=== PATIENT | female | born 1935 | race Caucasian/White ===

== ENCOUNTER 2017-11-03 11:23 | Day surgery (SDC) | payer MEDICARE ==
--- NOTE | 2017-11-03 07:13 | History and Physical - [place] ---
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 Over the last number of refills battery depletion was identified. She is here for battery change without solution or parameter changes. PAST MEDICAL HISTORY: Hypertension. PAST SURGICAL HISTORY: Hysterectomy, gallbladder surgery, spinal fusion and knee surgery. MEDICATIONS ON ADMISSION: List to be provided. ALLERGIES: LEVAQUIN, BETA BLOCKERS, ZOLOFT, LASIX, MAXZIDE, AUGMENTIN, AND ZAROXOLYN. FAMILY/PSYCHOSOCIAL HISTORY: Social history - Noncontributory. Family history - Asthma, coronary artery disease, hypertension, and cancer. SYSTEMS REVIEW: The patient seems appropriate in no acute distress. The remainder of the systems review is positive for blood pressure problems, bladder disease, reflux, and degenerative arthritis. PHYSICAL EXAMINATION: From chart height is 5'7", weight is 150. No vital signs. HEENT: Within normal limits. LUNGS: Clear. HEART: Regular rate and rhythm. ABDOMEN: Nontender. MUSCULOSKELETAL: Examination of the musculoskeletal system shows the pump in the right posterior gluteal margin. The incision was intact. The midline incision for the catheter placement was intact. Primary pain pattern low back with a bilateral lower extremity extension. Motor and sensory field evaluation shows generalized weakness and sensory loss to both lower extremities. NEUROLOGIC: Cranial nerves are intact. IMPRESSION: 1. 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 2. IMPLANTED INTERNAL INTRATHECAL INFUSION DEVICE WITH BATTERY DEPLETION. PLAN: The patient is here for a pump battery replacement on an outpatient basis. The side effects, risks, and complications were reviewed and discussed. The procedure will be outpatient. JOB NUMBER: [id number] [facility]
[~2017-11-03 11:23] MED LIST: ACETAMINOPHEN 1,000 MG/100 ML BTL IV ONE; CLINDAMYCIN 600MG/50ML PREMIX 600 MG/50 ML BAG IVPB ONE; FAMOTIDINE 20MG TABLET PO ONE; MECLIZINE 25 MG TABLET PO ONE; METOCLOPRAMIDE 10 MG TABLET PO ONE; MORPHINE SULFATE 0.5 GM in 0.9 % SODIUM CHLORIDE 100ML 20 ML IV ONE; MORPHINE SULFATE/PF 0.05 MG in 0.9 % SODIUM CHLORIDE 10ML VIA 0.95 ML IV ONE
[2017-11-03] MEDS ORDERED: LIDOCAINE 1% W/EPI 1:200,000 MPF 30ML SQ ONE (11:24)
[2017-11-03] MEDS ORDERED: LIDOCAINE 2% MDV (20MG/ML) 20ML VIAL IV ONE (11:24)
[2017-11-03] MEDS ORDERED: CLINDAMYCIN (PEDIATRIC DOSING) 150 MG/ML VIAL IVPB ONE (11:24)
[2017-11-03] MEDS ORDERED: BUPIVACAINE 0.5% W/EPI MPF 30 ML VIAL IVP ONE (11:24)
[2017-11-03] MEDS ORDERED: MIDAZOLAM HCL 2MG/2ML VIAL IV ONE (11:24)
[2017-11-03] MEDS ORDERED: PROPOFOL 10 MG/ML VIAL IV ONE (11:24)
[2017-11-03] MEDS ORDERED: FENTANYL PF 100MCG/2ML VIAL IV ONE (11:24)
--- NOTE | 2017-11-05 16:52 | Operative Note ---
DATE OF SURGERY: 11/03/17 PREOPERATIVE DIAGNOSES: 1. POST LUMBAR LAMINECTOMY RADICULOPATHY, ICD-10 CODE = M96.1 WITH M54.16 AND M54.17. 2. MODERATELY SEVERE THORACOLUMBAR SCOLIOSIS, ICD-10 CODE = M41.25. 3. INTRASPINAL INFUSION DEVICE MORPHINE WITH BATTERY DEPLETION. OPERATION: 1. INCISION, SUBCUTANEOUS DISSECTION, REMOVAL, AND REPLACEMENT OF PROGRAMMABLE PUMP AT RIGHT POSTERIOR/SUPERIOR GLUTEAL MARGIN. 2. DIAGNOSTIC MYELOGRAPHY WITH RADIOLOGIC SUPERVISION AND INTERPRETATION. 3. CLOSURE OF PUMP POUCH, STRATAFIX SUTURE, 2-0 FASCIA, 3-0 RUNNING SUBCUTICULAR WITH DERMABOND CLOSURE. SURGEON: ZEV BHATT D.O. ANESTHESIA: LOCAL SEDATION. ANESTHESIA PROVIDER: GLORIA MORELAND CRNA. INDICATION: This patient presents with a history of intractable post lumbar laminectomy radiculopathy. Her diagnostics show moderately severe rotoscoliosis with multiple level fusion, multiple level decompression laminectomy, and extensive degenerative disease. A spinal infusion system in place for approximately 10-12 years. Over the last number of refills and reprogrammings, battery depletion identified. She is here for pump battery change without parameter or setting changes to the infusion. PROCEDURE: Intravenous line, vital sign monitoring, IV sedation by Anesthesia. Patient position prone. Sterile prep. Sterile technique. The incisional site for the pump at the right posterior gluteal margin marked, infiltrated, incision made, and subcutaneous dissection was conducted to the supraspinous fascia. The pump pouch was then opened, pump exteriorized, then from the indwelling catheter. Prior to the separation, a 24-gauge Rodrigues needle was inserted into the access port and 1 mL of catheter contents was aspirated clearing the catheter of opioid and CSF mixture. A new pump prefilled Morphine 20 mg per mL was placed onto the field and interfaced with the indwelling catheter. Antibiotic irrigation and Bovie for hemostasis. The pump was placed into the pouch and secured to the posterior fascia with nonabsorbable suture. A curved 24-gauge Rodrigues needle was inserted into the access port. Contrast myelography was performed; resulting flow characteristics identified appropriate flow within the internal device. Pump catheter connection was visualized. There were no kinks, bends, or leaks. Catheter tip at T7-T8 was identified with smooth and linear myelogram characteristics noted. Functionality of the system was then noted and assured. The pouch was then closed using a STRATAFIX suture for the fascia 2-0, and then the subcuticular with STRATAFIX 3-0 was then performed. A Dermabond closure approximating the edges of the wound. The pump was then programmed back to original parameters at 0.384 mg Morphine over 24 hours. She was transported to the Recovery Room stable. No side-effects from the procedure or the sedation. When fully awake and alert, she was prepared for discharge. DISCHARGE INSTRUCTIONS: 1. Sites to remain clean and dry although the Dermabond will allow showering, she should not sit in water, tub, or hot tub. 2. Her standard medications can be resumed. The antibiotic, Keflex, 500 mg four times a day for 10 days will be provided. The office will contact the patient within the next 2-3 days to set up an appointment in 7-10 days to evaluate the incisional sites. Until then, her activities should stay low limiting bend, lift , push, pull. All other instructions were provided, numbers to contact with problems given. She will be discharged. cc: Dr. Carty JOB NUMBER: [id number] MTDD
== END 2017-11-03 14:20 | disposition home or self-care (01) ==
LOC: SUR 11:23
PROVIDERS: ATTEND Pain Medicine Interventional Pain Medicine
DX: M96.1 Postlaminectomy syndrome, not elsewhere classified (principal); M54.16 Radiculopathy, lumbar region; M54.17 Radiculopathy, lumbosacral region; M41.25 Other idiopathic scoliosis, thoracolumbar region; I10 Essential (primary) hypertension
CPT/HCPCS: 62360; 00300; 62368; Q9967; J3010